=== PATIENT | male | born 1955 | race Hispanic/Latino ===

== ENCOUNTER 2022-04-01 13:31 | Inpatient (IN) | payer BC, OTHER ==
[~2022-04-01] VITALS: Ht 172.7 cm; Wt 86.0 kg
[~2022-04-01 13:31] MED LIST: ASPIRIN325 MG PO; CHLORDIAZEPOXID25 MG PO; FAMOTIDINE20 MG PO; FOLIC ACID1 MG PO; LISINOPRIL-HCT1 EACH PO; MECLIZINE HCL12.5 MG PO; NIFEDIPINE ER30 M1 PO; VITAMIN B-1100 MG PO
[2022-04-01] MEDS ORDERED: SODIUM CHLORIDE 0.9% 1000ML 1,000 ML IV STA (13:43)
[2022-04-01] MEDS ORDERED: DIAZEPAM 5 MG TAB PO ONE (13:45)
[2022-04-01 14:05] LABS: BASOPHILS # (AUTO) 0.1 (0.0-0.1); BASOPHILS % 0.3 % (0.0-1.0); HEMATOCRIT 41.8 % (38.2-49.6); HEMOGLOBIN 15.2 g/dL (14.0-18.0); LYMPHOCYTES # (AUTO) 2.4 (1.0-3.2); LYMPHOCYTES % 15.8 % (18.0-39.1); MEAN CORPUSCULAR HGB CONC 36.4 g/dL (31-35); MEAN CORPUSCULAR VOLUME 90.7 fL (81-99); MONOCYTES # (AUTO) 1.2 (0.2-0.8); MONOCYTES % 7.7 % (4.4-11.3); NEUTROPHILS # (AUTO) 11.5 (2.1-6.9); NEUTROPHILS % 75.5 % (38.7-80.0); PLATELET COUNT 198 x10e3/uL (140-360); RED BLOOD COUNT 4.61 x10e6/uL (4.3-5.7)
[2022-04-01] MEDS ORDERED: DIAZEPAM INJ 5 MG/ML 2 ML IV ONE ×2 (15:45→17:30)
[2022-04-01 15:57] LABS: ALANINE AMINOTRANSFERASE 31 IU/L (0-55); ALBUMIN 3.8 g/dL (3.5-5.0); ALBUMIN/GLOBULIN RATIO 0.7 (0.8-2.0); ALKALINE PHOSPHATASE 79 IU/L (40-150); ANION GAP 22.4 mmol/L (8-16); BLOOD UREA NITROGEN 8 mg/dL (7-26); BUN/CREATININE RATIO 11 (6-25); CALCIUM 9.5 mg/dL (8.4-10.2); CARBON DIOXIDE 24 mmol/L (22-29); CHLORIDE 78 mmol/L (98-107); CREATININE, SERUM 0.76 mg/dL (0.72-1.25); GLUCOSE 140 mg/dL (74-118); POTASSIUM 4.4 mmol/L (3.5-5.1); SODIUM 120 mmol/L (136-145)
[2022-04-01] MEDS ORDERED: SODIUM CHLORIDE 0.9% 1000ML 1,000 ML IV SCH (16:30)
[2022-04-01] MEDS ORDERED: ONDANSETRON HCL INJ 2MG/ML 2ML 2 MG/ML VIAL IV PRN (16:30)
[2022-04-01 17:11] LABS: CLARITY,URINE SL CLOUDY (CLEAR); COLOR,URINE AMBER (YELLOW); KETONES,URINE 2+ (NEGATIVE); LEUKOCYTE ESTERASE ,URINE NEGATIVE (NEGATIVE); NITRITE,URINE NEGATIVE (NEGATIVE); PROTEIN,URINE DIPSTICK >=300 (NEGATIVE); URINE UROBILINOGEN 1 mg/dL (0.2 - 1)
[2022-04-01 17:12] LABS: AMPHETAMINES SCREEN,URINE NEGATIVE (NEGATIVE); BENZODIAZEPINES SCREEN,URINE NEGATIVE (NEGATIVE); PHENCYCLIDINE SCREEN,URINE NEGATIVE (NEGATIVE)
[2022-04-01 17:22] LABS: BACTERIA,URINE MODERATE /HPF
[2022-04-01 17:23] LABS: AMORPHOUS SEDIMENT,URINE MODERATE (FEW)
[2022-04-01] MEDS ORDERED: CHLORDIAZEPOXIDE HCL 10 MG CAP PO PRN (20:15)
[2022-04-01] MEDS ORDERED: THIAMINE HCL INJ 100 MG/ML 2ML VIAL IV ONE (20:15)
[2022-04-01] MEDS ORDERED: LORAZEPAM 0.5 MG TAB PO PRN (20:15)
[2022-04-01] MEDS ORDERED: CLONIDINE HCL 0.2 MG TAB PO PRN (20:15)
[2022-04-01 20:39] LABS: ALBUMIN 3.2 g/dL (3.5-5.0); ALBUMIN/GLOBULIN RATIO 0.7 (0.8-2.0); ANION GAP 17.5 mmol/L (8-16); CALCIUM 8.4 mg/dL (8.4-10.2); CREATININE, SERUM 0.68 mg/dL (0.72-1.25); POTASSIUM 4.5 mmol/L (3.5-5.1)
[2022-04-01] MEDS: MULTIVITAMINS- 12 INJECTION 10 ML, FOLIC ACID MDV 1 MG, THIAMINE HCL INJ 100 MG in SODI... IV SCH (21:30)
[2022-04-01] MEDS ORDERED: SODIUM CHLORIDE 1 GM TAB PO STA (21:40)
[2022-04-01] MEDS: LORAZEPAM INJ 2 MG/ML VIAL IV PRN (21:45)
[2022-04-02] VITALS (36 sets, daily range): BP systolic 81–172; BP diastolic 8–138
[2022-04-02] MEDS ORDERED: DIAZEPAM INJ 5 MG/ML 2 ML IV ONE (00:15)
[2022-04-02] MEDS: LORAZEPAM INJ 2 MG/ML VIAL IV PRN ×5 (00:19→20:31)
[2022-04-02] MEDS ORDERED: DIAZEPAM INJ 5 MG/ML 2 ML ONE (00:21)
[2022-04-02] MEDS ORDERED: FUROSEMIDE INJ 10 MG/ML 2 ML VIAL IV ONE (00:30)
[2022-04-02] MEDS: MULTIVITAMINS- 12 INJECTION 10 ML, FOLIC ACID MDV 1 MG, THIAMINE HCL INJ 100 MG in SODI... IV SCH ×2 (06:22→20:05)
[2022-04-02 06:33] LABS: BASOPHILS % 0.3 % (0.0-1.0); EOSINOPHILS % 0.3 % (0.0-6.0); HEMATOCRIT 35.1 % (38.2-49.6); HEMOGLOBIN 12.5 g/dL (14.0-18.0); LYMPHOCYTES # (AUTO) 2.1 (1.0-3.2); MEAN CORPUSCULAR HEMOGLOBIN 32.8 pg (28-32); MEAN CORPUSCULAR HGB CONC 35.6 g/dL (31-35); MEAN CORPUSCULAR VOLUME 92.1 fL (81-99); MONOCYTES # (AUTO) 1.4 (0.2-0.8); MONOCYTES % 12.6 % (4.4-11.3); NEUTROPHILS # (AUTO) 7.3 (2.1-6.9); NEUTROPHILS % 67.4 % (38.7-80.0); PLATELET COUNT 157 x10e3/uL (140-360); RED BLOOD COUNT 3.81 x10e6/uL (4.3-5.7)
[2022-04-02] MEDS: FAMOTIDINE 20 MG TAB PO SCH ×2 (08:44→16:01)
[2022-04-02] MEDS: THIAMINE HCL 100 MG TAB PO SCH (08:44)
[2022-04-02] MEDS: FOLIC ACID 1 MG TAB PO SCH (08:45)
[2022-04-02] MEDS: NIFEDIPINE CR 30 MG TAB PO SCH (08:45)
[2022-04-02] MEDS: ASPIRIN 81 MG ENTERIC COATED PO SCH (08:45)
[2022-04-02 10:36] LABS: ANION GAP 14.5 mmol/L (8-16); CALCIUM 8.4 mg/dL (8.4-10.2); CREATININE, SERUM 0.66 mg/dL (0.72-1.25); POTASSIUM 3.5 mmol/L (3.5-5.1)
[2022-04-02] MEDS: CHLORDIAZEPOXIDE HCL 10 MG CAP PO SCH ×5 (11:16→17:48)
[2022-04-02] MEDS: SODIUM CHLORIDE 0.9% 1000ML 1,000 ML IV SCH (11:18)
[2022-04-02 16:20] LABS: CALCIUM 8.4 mg/dL (8.4-10.2); CREATININE, SERUM 0.96 mg/dL (0.72-1.25)
[2022-04-02] MEDS: ENOXAPARIN SOD INJ 40 MG/0.4 ML SYR SC SCH (17:02)
[2022-04-02 21:31] LABS: ANION GAP 14.3 mmol/L (8-16); CALCIUM 8.1 mg/dL (8.4-10.2); CREATININE, SERUM 0.83 mg/dL (0.72-1.25); POTASSIUM 3.3 mmol/L (3.5-5.1)
[2022-04-02] MEDS ORDERED: POTASSIUM CHLORIDE 20 MEQ TAB CR PO STA (21:53)
[2022-04-02] MEDS ORDERED: CALCIUM GLUC 1 G/50 ML NACL 50 ML IV ONE (22:00)
[2022-04-03] VITALS (21 sets, daily range): BP systolic 71–161; BP diastolic 52–127
[2022-04-03] MEDS: CHLORDIAZEPOXIDE HCL 10 MG CAP PO SCH ×2 (00:13→06:00)
[2022-04-03] MEDS: SODIUM CHLORIDE 0.9% 1000ML 1,000 ML IV SCH (00:35)
[2022-04-03] MEDS: LORAZEPAM INJ 2 MG/ML VIAL IV PRN (02:10)
[2022-04-03 05:59] LABS: BASOPHILS % 0.4 % (0.0-1.0); EOSINOPHILS % 0.3 % (0.0-6.0); HEMATOCRIT 33.9 % (38.2-49.6); HEMOGLOBIN 11.9 g/dL (14.0-18.0); LYMPHOCYTES # (AUTO) 2.2 (1.0-3.2); MEAN CORPUSCULAR HEMOGLOBIN 32.6 pg (28-32); MEAN CORPUSCULAR HGB CONC 35.1 g/dL (31-35); MEAN CORPUSCULAR VOLUME 92.9 fL (81-99); MONOCYTES # (AUTO) 1.4 (0.2-0.8); NEUTROPHILS # (AUTO) 6.8 (2.1-6.9); NEUTROPHILS % 64.8 % (38.7-80.0); PLATELET COUNT 161 x10e3/uL (140-360); RED BLOOD COUNT 3.65 x10e6/uL (4.3-5.7); RED CELL DISTRIBUTION WIDTH 11.2 % (11.7-14.4)
[2022-04-03 07:00] LABS: ANION GAP 15.3 mmol/L (8-16); CALCIUM 8.3 mg/dL (8.4-10.2); CREATININE, SERUM 0.67 mg/dL (0.72-1.25); POTASSIUM 3.3 mmol/L (3.5-5.1)
[2022-04-03 07:27] LABS: MAGNESIUM 1.5 MG/DL (1.3-2.1); PHOSPHORUS 2.8 MG/DL (2.3-4.7)
[2022-04-03 07:48] LABS: THYROID STIMULATING HORMONE 1.745 uIU/mL (0.350-4.940)
[2022-04-03] MEDS ORDERED: POTASSIUM CHLORIDE 20 MEQ TAB CR PO STA (08:12)
[2022-04-03] MEDS: ASPIRIN 81 MG ENTERIC COATED PO SCH (08:15)
[2022-04-03] MEDS: FOLIC ACID 1 MG TAB PO SCH (08:15)
[2022-04-03] MEDS: FAMOTIDINE 20 MG TAB PO SCH ×2 (08:15→17:30)
[2022-04-03] MEDS: THIAMINE HCL 100 MG TAB PO SCH (08:15)
[2022-04-03] MEDS: NIFEDIPINE CR 30 MG TAB PO SCH (08:16)
[2022-04-03] MEDS ORDERED: MAGNESIUM SULFATE 2GM/50ML IV ONE (10:00)
[2022-04-03] MEDS ORDERED: MAGNESIUM SULFATE 2GM/50ML 50 ML IV ONE ×2 (10:30→10:45)
[2022-04-03] MEDS ORDERED: POTASSIUM CHLORIDE 20 MEQ TAB CR PO ONE (10:30)
[2022-04-03] MEDS ORDERED: CHLORDIAZEPOXIDE HCL 10 MG CAP PO SCH (12:00)
[2022-04-03] MEDS ORDERED: GENTAMICIN SULFATE 0.3% OPTH OINT 3.5GM TUBE OP SCH (13:00)
[2022-04-03] MEDS ORDERED: POTASSIUM PHOSPHATE 20 MM in SODIUM CHLORIDE 0.9% 250ML 250 ML IV SCH (13:00)
[2022-04-03] MEDS ORDERED: CHLORDIAZEPOXIDE HCL 10 MG CAP PO PRN (16:00)
[2022-04-03] MEDS: ENOXAPARIN SOD INJ 40 MG/0.4 ML SYR SC SCH (17:30)
[2022-04-03 18:12] LABS: ALBUMIN/GLOBULIN RATIO 0.7 (0.8-2.0); ANION GAP 14.9 mmol/L (8-16); CALCIUM 8.3 mg/dL (8.4-10.2); CREATININE, SERUM 0.59 mg/dL (0.72-1.25); POTASSIUM 3.9 mmol/L (3.5-5.1)
[2022-04-04] VITALS (16 sets, daily range): BP systolic 121–150; BP diastolic 64–103
[2022-04-04 05:56] LABS: BASOPHILS # (AUTO) 0.1 (0.0-0.1); BASOPHILS % 0.7 % (0.0-1.0); EOSINOPHILS # (AUTO) 0.1 (0.0-0.4); EOSINOPHILS % 0.9 % (0.0-6.0); HEMATOCRIT 34.6 % (38.2-49.6); HEMOGLOBIN 12.2 g/dL (14.0-18.0); LYMPHOCYTES # (AUTO) 1.7 (1.0-3.2); LYMPHOCYTES % 18.9 % (18.0-39.1); MEAN CORPUSCULAR HEMOGLOBIN 33.2 pg (28-32); MEAN CORPUSCULAR HGB CONC 35.3 g/dL (31-35); MEAN CORPUSCULAR VOLUME 94.3 fL (81-99); MONOCYTES # (AUTO) 1.3 (0.2-0.8); NEUTROPHILS # (AUTO) 5.9 (2.1-6.9); NEUTROPHILS % 65.2 % (38.7-80.0); PLATELET COUNT 183 x10e3/uL (140-360); RED BLOOD COUNT 3.67 x10e6/uL (4.3-5.7)
[2022-04-04 06:27] LABS: MAGNESIUM 1.7 MG/DL (1.3-2.1); PHOSPHORUS 2.8 MG/DL (2.3-4.7)
[2022-04-04 06:29] LABS: ALBUMIN 2.9 g/dL (3.5-5.0); ALBUMIN/GLOBULIN RATIO 0.7 (0.8-2.0); ANION GAP 14.9 mmol/L (8-16); CALCIUM 8.6 mg/dL (8.4-10.2); CREATININE, SERUM 0.59 mg/dL (0.72-1.25); POTASSIUM 3.9 mmol/L (3.5-5.1)
[2022-04-04] MEDS: FAMOTIDINE 20 MG TAB PO SCH ×2 (07:36→16:52)
[2022-04-04] MEDS: NIFEDIPINE CR 30 MG TAB PO SCH (08:22)
[2022-04-04] MEDS: FOLIC ACID 1 MG TAB PO SCH (08:22)
[2022-04-04] MEDS: THIAMINE HCL 100 MG TAB PO SCH (08:22)
[2022-04-04] MEDS: ASPIRIN 81 MG ENTERIC COATED PO SCH (08:22)
[2022-04-04] MEDS ORDERED: GENTAMICIN SULFATE 0.3% OPTH OINT 3.5GM TUBE OP SCH (09:00)
[2022-04-04] MEDS ORDERED: MAGNESIUM SULFATE 2GM/50ML 50 ML IV ONE (16:30)
[2022-04-04] MEDS: ENOXAPARIN SOD INJ 40 MG/0.4 ML SYR SC SCH (16:52)
[2022-04-05] VITALS (11 sets, daily range): BP systolic 120–165; BP diastolic 72–90
[2022-04-05 08:27] LABS: ANION GAP 15.8 mmol/L (8-16); CALCIUM 9.1 mg/dL (8.4-10.2); CREATININE, SERUM 0.64 mg/dL (0.72-1.25); POTASSIUM 3.8 mmol/L (3.5-5.1)
[2022-04-05] MEDS: FOLIC ACID 1 MG TAB PO SCH (08:53)
[2022-04-05] MEDS: NIFEDIPINE CR 30 MG TAB PO SCH (08:53)
[2022-04-05] MEDS: TAMSULOSIN HCL 0.4 MG CAP PO SCH ×2 (08:55→16:51)
[2022-04-05] MEDS: FAMOTIDINE 20 MG TAB PO SCH ×2 (08:55→16:49)
[2022-04-05] MEDS: THIAMINE HCL 100 MG TAB PO SCH (08:55)
[2022-04-06 04:00] VITALS: BP 146/73
[2022-04-06 05:22] LABS: ANION GAP 15.6 mmol/L (8-16); CALCIUM 8.8 mg/dL (8.4-10.2); CREATININE, SERUM 0.64 mg/dL (0.72-1.25); POTASSIUM 3.6 mmol/L (3.5-5.1)
[2022-04-06] MEDS: FAMOTIDINE 20 MG TAB PO SCH (07:30)
[2022-04-06 08:31] VITALS: BP 124/75
[2022-04-06] MEDS: FOLIC ACID 1 MG TAB PO SCH (09:00)
[2022-04-06] MEDS: TAMSULOSIN HCL 0.4 MG CAP PO SCH (09:00)
[2022-04-06] MEDS: NIFEDIPINE CR 30 MG TAB PO SCH (09:00)
[2022-04-06] MEDS: THIAMINE HCL 100 MG TAB PO SCH (09:00)
[2022-04-06] MEDS ORDERED: FLOMAX0.4 MG PO (09:15)
[2022-04-06] MEDS ORDERED: LIBRIUM PO (09:16)
[2022-04-06] MEDS ORDERED: DISULFIRAM250 MG PO (09:16)
[2022-04-06 09:20] VITALS: BP 124/75
[2022-04-06] MEDS ORDERED: ONDANSETRON HCL 4 MG ORAL DISINTEGRATING TAB PO PRN (09:30)
== END 2022-04-06 12:23 | disposition home or self-care (01) | DRG 896 ==
LOC: ER 13:35 → ERHOLD 16:26 → ICU 04-02 00:44 → MED/SURG 04-05 01:27
PROVIDERS: ADMIT Internal Medicine; ATTEND Internal Medicine
DX: F10.231 Alcohol dependence with withdrawal delirium (principal); G93.41 Metabolic encephalopathy; E87.1 Hypo-osmolality and hyponatremia; I10 Essential (primary) hypertension; F41.9 Anxiety disorder, unspecified; D64.9 Anemia, unspecified; E87.6 Hypokalemia; G31.2 Degeneration of nervous system due to alcohol; Z20.822 Contact with and (suspected) exposure to COVID-19
CPT/HCPCS: 36415; 51700; 70450; 80048; 80053; 80307; 81001; 82607; 82948; 83735; 84100; 84443; 84484; 85025; 87040; 93005; 94799; 97139; 99284; J0696; J1650; J1940; J2060; J3360; J3411; J3475; J7030; J7050